=== PATIENT | female | born 1985 | race Caucasian/White ===

== ENCOUNTER 2022-04-20 17:20 | Inpatient (IN) | payer OTHER, SELFPAY ==
[2022-04-20 17:36] LABS: Urine Blood Negative (Negative); Urine Glucose Negative (Negative); Urine Protein Trace (Negative); Urine Specific Gravity >=1.030 (1.005-1.030); Urine pH 5.5 (5.0-7.0)
[2022-04-20 17:43] LABS: Arterial Blood Carboxyhemoglob 4.8 % (0-1.5); Blood Gas Oxyhemoglobin 92.7 % (94-97); Blood O2 Saturation 98.8 % (92-98.5)
[2022-04-20] MEDS ORDERED: MULTIVITAMINS 10 ML VIAL (INJ) IV ONE (17:45)
[2022-04-20] MEDS ORDERED: NA CHLORIDE 0.9% 2,000 ML ONE (17:45)
[2022-04-20 17:47] LABS: Absolute Lymphocytes (CBC) 1.1 K/uL (0.7-4.9); Hematocrit 42.2 % (36.0-45.0); Lymphocytes % 9.3 % (15.3-44.8); MCV 88.4 fL (80-100); MPV 8.3 fL (7.6-11.3); RBC Red Blood Cell Count 4.77 M/uL (3.86-4.86)
[2022-04-20 17:56] LABS: Barbiturates NEGATIVE (NEGATIVE); Benzodiazepines POSITIVE (NEGATIVE); Cocaine NEGATIVE (NEGATIVE); METHAMPHETAM POSITIVE (NEGATIVE); Methadone NEGATIVE (NEGATIVE); Opiates NEGATIVE (NEGATIVE); Phencyclidine NEGATIVE (NEGATIVE); THC Cannibis POSITIVE (NEGATIVE)
--- NOTE | 2022-04-20 18:05 | RAD REPORT ---
EXAM DESCRIPTION: Christie Single View04/20/2022 5:52 pm CLINICAL HISTORY: ams COMPARISON: No comparisons TECHNIQUE: Portable AP view of the chest. FINDINGS: The lungs are clear. No pneumothorax or effusion. The cardiomediastinal contours are unrem arkable. IMPRESSION: No acute cardiopulmonary process.
[2022-04-20 18:13] LABS: ALT/SGPT 36 U/L (13-56); AST/SGOT 21 U/L (15-37); Alkaline Phosphatase 64 U/L (45-117); BUN Blood Urea Nitrogen 9 mg/dL (7-18); Bicarbonate 23 mmol/L (21-32); Bilirubin Total 0.5 mg/dL (0.2-1.0); Glomerular Filtration Rate 82 ml/min (=/>90); Glucose Level 148 mg/dL (74-106); Protein, Total 7.4 g/dL (6.4-8.2); Sodium Level 138 mmol/L (136-145)
[2022-04-20 18:31] LABS: Urine Specific Gravity/Preg >1.030 (1.005-1.030)
--- NOTE | 2022-04-20 18:49 | RAD REPORT ---
EXAM DESCRIPTION: CT - Head Brain Wo Cont - 04/20/2022 6:30 pm CLINICAL HISTORY: ams COMPARISON: No comparisons TECHNIQUE: Noncontrast head CT images ad were obtained without IV contrast. Multiplanar reformats we re generated and reviewed. All CT scans are performed using dose optimization technique as appropriate and may include automated exposure control or mA/KV adjustment according to patient size. FINDINGS: No intracranial hemorrhage, mass, or edema. No abnormal extra-axial fluid collections. Mid line structures are unremarkable. Normal ventricular caliber for age. Priest-white matter differentiation is preserved, without evidence of acute infarct. No abnormal extra- axial fluid collections. Mastoid air cells and visualized portions of the paranasal sinuses are clear. No acute bony findings. IMPRESSION: No evidence of an acute intracranial process.
[2022-04-20 19:19] LABS: Creatine Phosphokinase 138 U/L (26-192)
[2022-04-21] MEDS ORDERED: LORazepam 2 MG/ML VIAL ONE ×3 (02:59→17:26)
[2022-04-21] MEDS ORDERED: MIDAZOLAM HCL 2 MG/2 ML INJ ONE (03:38)
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
--- NOTE | 2022-04-21 04:02 | EDPHYS ---
Physician Documentation [facility] Name: Fidelia Rios Age: 36 yrs Sex: Female : 1985 Arrival Date: 04/20/2022 Time: 17:25 Bed 6 Private MD: ED Physician Sumit Perdue HPI: 04/20 18:36 This 36 yrs old Female presents to ER via EMS with complaints of Altered Mental Status. rt 18:36 Unable to obtain HPI due to altered mental status. Patient presents to the ED with rt altered mental status. Patient was found by law enforcement to be combative on a jetty. The patient was given Versed, became oversedated, Narcan was given to no improvement. The police did find a suicide note as well as divorce papers with a bottle of 10 mg of buspirone with about 20 pills missing. No further history could be obtained. Symptoms are severe in severity, no other aggravating or alleviating factors.. Historical: - Allergies: 17:31 Unable to obtain; hb 04/21 07:26 Latex, Natural Rubber; bb 07:26 adhesive tape-silicones; bb 07:26 Adderall; bb 07:26 surgical suture; bb - Home Meds: 04/20 17:31 Unable to obtain [Active]; hb - PMHx: 17:31 Unable to Obtain; hb - PSHx: 17:31 Unable to Obtain; hb - Immunization history:: Adult Immunizations up to date. - Social history:: Smoking status: Patient denies any tobacco usage or history of. - Unable to obtain history due to: altered mental status. ROS: 18:36 Unable to obtain ROS due to altered mental status. rt 04/22 08:39 Constitutional: Unable to obtain secondary to altered mental status on initial kdr presentation Exam: 04/20 18:36 Constitutional: The patient appears Somnolent, uncooperative rt Head/face: No external evidence of trauma. Eyes: Pupils dilated, nonreactive, midline. ECG was reviewed by the Attending Physician. Neuro: Somnolent, not following commands, arouses to minimal physical stimuli, not to verbal stimuli. Appears to move all 4 extremities equally. No obvious cranial nerve deficits.. Psych: Not assessable at this time. 18:41 ENT: Nares patent. No nasal discharge, no septal abnormalities noted. Tympanic rt membranes are normal and external auditory canals are clear. Oropharynx with no redness, swelling, or masses, exudates, or evidence of obstruction, uvula midline. Mucous membranes moist. Chest/axilla: Normal chest wall appearance and motion. Nontender with no deformity. No lesions are appreciated. Cardiovascular: Regular rate and rhythm with a normal S1 and S2. No gallops, murmurs, or rubs. Normal PMI, no JVD. No pulse deficits. Respiratory: Lungs have equal breath sounds bilaterally, clear to auscultation and percussion. No rales, rhonchi or wheezes noted. No increased work of breathing, no retractions or nasal flaring. Abdomen/GI: Soft, non-tender, with normal bowel sounds. No distension or tympany. No guarding or rebound. No evidence of tenderness throughout. Skin: Warm, dry with normal turgor. Normal color with no rashes, no lesions, and no evidence of cellulitis. MS/ Extremity: Pulses equal, no cyanosis. Neurovascular intact. Full, normal range of motion. 04/21 04:20 ECG was reviewed by the Attending Physician. Sinus tachycardia, rate 109, no STEMI sd2 criteria, TWIs in lead II and III 09:33 ECG was reviewed by the Attending Physician. rt Vital Signs: 04/20 17:29 BP 120 / 67; Pulse 119; Resp 18; Temp 97.8(A); Pulse Ox 99% 2 lpm ; Pain 0/10; hb 17:30 BP 122 / 81; Pulse 108; Resp 16; Pulse Ox 99% ; ko1 17:45 BP 118 / 74; Pulse 104; Resp 16; Pulse Ox 99% ; ko1 18:00 BP 118 / 72; Pulse 101; Resp 16; Pulse Ox 99% ; ko1 18:15 BP 116 / 65; Pulse 97; Pulse Ox 98% ; ko1 18:39 BP 111 / 71; Pulse 95; Resp 19; Pulse Ox 100% on 2 lpm NC; hb 19:32 BP 106 / 68; Pulse 91; Resp 18; Pulse Ox 100% ; tw5 20:28 BP 115 / 73; Pulse 96; Resp 25 S; Pulse Ox 99% on 2 lpm NC; as6 21:28 BP 113 / 77; Pulse 95; Resp 18; Pulse Ox 99% on 2 lpm NC; tw5 23:00 BP 121 / 79; Pulse 106; Resp 24 S; Pulse Ox 99% on R/A; as6 0218 00:00 BP 122 / 79; Pulse 101; Resp 21 S; Pulse Ox 99% on R/A; as6 01:00 BP 126 / 85; Pulse 109; Resp 20 S; Pulse Ox 98% on R/A; as6 02:00 BP 137 / 92; Pulse 119; Resp 18 S; Pulse Ox 99% on R/A; as6 03:00 BP 119 / 82; Pulse 130; Resp 21 S; Pulse Ox 97% on R/A; as6 07:16 BP 133 / 89; Pulse 118; Resp 18; Temp 98.2(TE); Pulse Ox 97% on R/A; Pain 0/10; ll1 08:09 BP 143 / 65; Pulse 122; Resp 20 S; Pulse Ox 99% on R/A; kc6 09:03 BP 120 / 74; Pulse 117; Resp 21; Temp 97.7(O); Pulse Ox 99% ; ll1 10:08 BP 135 / 70; Pulse 116; Resp 22; Pulse Ox 100% on R/A; ll1 11:36 BP 123 / 77; Pulse 128; Resp 21; Pulse Ox 98% on R/A; ll1 14:22 BP 117 / 73; Pulse 111; Resp 20; Temp 98.7(O); Pulse Ox 96% on R/A; ll1 17:01 Pulse 117; Resp 20; Pulse Ox 99% on R/A; ll1 18:18 Pulse 107; Resp 20; Pulse Ox 96% on R/A; ll1 18:37 BP 107 / 66; Pulse 103; Resp 20; Temp 99.1(TE); Pulse Ox 97% ; ll1 19:10 BP 114 / 74; Pulse 64; Resp 16; Pulse Ox 100% ; mb9 20:10 BP 128 / 73; Pulse 102; Resp 16; Pulse Ox 100% ; mb9 21:10 BP 110 / 82; Pulse 100; Resp 15; Pulse Ox 100% on R/A; mb9 04/22 00:00 BP 116 / 75; Pulse 103; Resp 18 S; Pulse Ox 99% on R/A; as6 02:00 BP 114 / 72; Pulse 105; Resp 16 S; Pulse Ox 97% on R/A; as6 04:00 BP 108 / 57; Pulse 107; Resp 16 S; Temp 97.8(O); Pulse Ox 96% on R/A; as6 06:00 BP 117 / 71; Pulse 113; Pulse Ox 96% on R/A; as6 07:15 BP 126 / 77; Pulse 105; Resp 18; Temp 99.3; Pulse Ox 97% ; as6 22:17 BP 129 / 83; Pulse 94; Resp 26; Temp 98.4; Pulse Ox 99% on R/A; rv1 04/23 00:28 BP 116 / 77; Pulse 92; Resp 19; Temp 98.4; Pulse Ox 96% on R/A; rv1 04/20 17:29 Kobi (FACES) hb MDM: 04/20 17:30 Patient medically screened. rt 18:58 Management of patient was discussed with the following: Poison control contacted, rt recommends 6-hour observation.. I considered the following discharge prescriptions or medication management in the emergency department Medications were administered in the Emergency Department. See MAR. Historians other than the Patient: Law enforcement: Discussed with law enforcement, they found the patient suicide note and noted that she had a bottle of buspirone that was missing about 20 pills.. Care significantly affected by the following Social Determinants of Health: Misuse of alcohol and/or drugs. 04/21 10:18 Differential Diagnosis: Intentional overdose, polysubstance abuse, rhabdomyolysis, rt dysrhythmia. Data reviewed: vital signs, nurses notes, lab test result(s), EKG, radiologic studies. Consideration of Admission/Observation Patient was admitted/placed on observation. Response to treatment: There is no appreciated change of the patient's symptoms at this time. 04/20 17:30 Order name: CBC with Diff; Complete Time: 18:35 rt 04/20 17:30 Order name: CMP; Complete Time: 19:24 rt 04/20 17:30 Order name: UDS; Complete Time: 18:35 rt 04/20 17:30 Order name: ETOH Level; Complete Time: 18:35 rt 04/20 17:30 Order name: Acetaminophen; Complete Time: 19:24 rt 04/20 17:30 Order name: Salicylate; Complete Time: 18:35 rt 04/20 17:30 Order name: Magnesium; Complete Time: 19:24 rt 04/20 17:30 Order name: AMMONIA; Complete Time: 18:35 rt 04/20 17:30 Order name: ABG: VBG ok; Complete Time: 18:35 rt 04/20 17:36 Order name: Urine Dipstick-Ancillary; Complete Time: 18:35 EDMS 04/20 18:01 Order name: Glucose, Ancillary Testing; Complete Time: 18:35 EDMS 04/20 18:04 Order name: Urine --Ancillary (enter results); Complete Time: 18:35 zm 04/20 18:42 Order name: Creatine Phosphokinase; Complete Time: 19:24 EDMS 04/21 08:44 Order name: CBC with Diff; Complete Time: 09:35 rt 04/21 08:44 Order name: CMP; Complete Time: 09:35 rt 04/21 08:44 Order name: CPK; Complete Time: 09:35 rt 04/21 08:46 Order name: Magnesium; Complete Time: 09:35 rt 04/21 08:53 Order name: Troponin High Sensitivity; Complete Time: 09:35 rt 04/21 11:22 Order name: SARS RAPID; Complete Time: 12:14 iw 04/21 12:18 Order name: CPK; Complete Time: 13:37 rt 04/21 13:51 Order name: BMP; Complete Time: 15:38 rt 04/22 06:22 Order name: CBC with Diff sd2 04/22 06:22 Order name: BMP sd2 04/22 06:22 Order name: Magnesium sd2 04/22 06:22 Order name: CK sd2 04/22 07:23 Order name: CBC with Automated Diff; Complete Time: 08:17 EDMS 04/22 08:18 Order name: Basic Metabolic Panel; Complete Time: 08:20 EDMS 04/22 08:18 Order name: Creatine Phosphokinase; Complete Time: 08:20 EDMS 04/22 08:18 Order name: Magnesium; Complete Time: 08:20 EDMS 04/20 17:30 Order name: Chest Single View XRAY; Complete Time: 18:35 rt 04/20 17:30 Order name: Head Brain Wo Cont CT; Complete Time: 18:51 rt 04/22 22:16 Order name: Basic Metabolic Panel EDMS 04/22 22:16 Order name: Magnesium EDMS 04/23 02:42 Order name: CBC with Automated Diff EDMS 04/23 02:59 Order name: Comprehensive Metabolic Panel EDMS 04/23 02:59 Order name: Phosphorus EDMS 04/23 02:59 Order name: Magnesium EDMS 04/23 04:58 Order name: Creatine Phosphokinase EDMS 04/23 13:19 Order name: Basic Metabolic Panel EDMS 04/23 13:19 Order name: Creatine Phosphokinase EDMS 04/23 13:26 Order name: CBC with Automated Diff EDMS 04/20 17:30 Order name: Urine Dipstick-Ancillary (obtain specimen); Complete Time: 17:32 rt 04/20 17:30 Order name: Urine Test (obtain specimen); Complete Time: 17:32 rt 04/20 17:30 Order name: EKG; Complete Time: 17:31 rt 04/20 17:30 Order name: EKG - Nurse/Tech; Complete Time: 17:46 rt 04/20 17:30 Order name: Accucheck Blood Glucose; Complete Time: 17:49 rt 04/21 00:23 Order name: EKG - Nurse/Tech; Complete Time: 01:48 sd2 04/21 07:34 Order name: Diet Regular: Finger foods please; Complete Time: 07:35 ll1 04/21 08:46 Order name: EKG; Complete Time: 08:47 rt 04/21 08:46 Order name: EKG - Nurse/Tech; Complete Time: 08:55 rt 04/21 09:21 Order name: Diet Finger Food; Complete Time: 09:22 ll1 04/21 12:19 Order name: Diet Finger Food; Complete Time: 12:19 mm9 04/21 13:27 Order name: Diet Finger Food; Complete Time: 13:27 ll1 04/22 07:13 Order name: Diet Finger Food; Complete Time: 07:14 eb 04/22 10:49 Order name: Diet Finger Food; Complete Time: 10:49 mm9 04/22 15:54 Order name: Diet Finger Food; Complete Time: 15:55 ll1 04/23 13:57 Order name: Diet Regular; Complete Time: 13:58 rn EC/17 18:36 Rate is 107 beats/min. Rhythm is regular, Sinus tachycardia with No ectopy. Right axis rt deviation noted. VA interval is normal at 158 msec. QRS interval is normal at 76 msec. QT interval is prolonged at 504 msec. 04/21 09:33 Rate is 120 beats/min. Rhythm is regular, Sinus tachycardia with No ectopy. QRS [place] is rt Normal. VA interval is normal. QRS interval is normal. QT interval is normal. No Q waves. Clinical impression: NSR w/ Non-specific ST/T Changes. Administered Medications: 04/20 17:46 Drug: NS 0.9% 1000 ml Route: IV; Rate: bolus; Site: right forearm; hb 04/21 06:25 Follow up: Response: No adverse reaction; IV Status: Completed infusion; IV Intake: as6 1000ml 04/20 17:46 Drug: Banana Bag - (NS 0.9% 1000 ml, foLIC Acid 1 mg, Thiamine 100 mg, Multivitamin 1 hb amp) Route: IV; Rate: calculated rate; Site: right forearm; 04/21 06:25 Follow up: Response: No adverse reaction; IV Status: Completed infusion; IV Intake: as6 1000ml 02:55 Drug: Ativan (LORazepam) 1 mg Route: IVP; Site: right forearm; as6 06:25 Follow up: Response: No adverse reaction as6 03:31 CANCELLED (Physician Discretion): Geodon (ziprasidone) 20 mg IM once sd2 03:38 Drug: Midazolam 5 mg Route: IVP; Site: right forearm; as6 06:26 Follow up: Response: No adverse reaction as6 04:59 Drug: Geodon (ziprasidone) 10 mg Route: IM; Site: right deltoid; as6 06:26 Follow up: Response: No adverse reaction as6 08:27 Drug: Geodon (ziprasidone) 10 mg Route: IM; Site: left vastus lateralis; ll1 09:07 Follow up: Response: No adverse reaction; RASS: Agitated (+2) ll1 08:57 Drug: NS 0.9% 1000 ml Route: IV; Rate: 1 bolus; Site: left forearm; ll1 10:09 Follow up: Response: No adverse reaction; IV Status: Completed infusion; IV Intake: ll1 1000ml 08:58 Drug: Ativan (LORazepam) 1 mg {Note: RASS +3.} Route: IVP; Site: left forearm; ll1 10:09 Follow up: Response: No adverse reaction; RASS: Agitated (+2) ll1 12:06 Drug: NS 0.9% 1000 ml Route: IV; Rate: 1 bolus; Site: left forearm; ll1 18:12 Follow up: Response: No adverse reaction; IV Status: Completed infusion; IV Intake: ll1 1000ml 15:30 Drug: Valium (diazepam) 10 mg Route: PO; ll1 18:17 Follow up: Response: No adverse reaction; RASS: Drowsy (-1) ll1 17:23 Drug: Ativan (LORazepam) 2 mg {Note: RASS + 4.} Route: IVP; Site: left forearm; ll1 18:18 Follow up: Response: No adverse reaction; RASS: Light sedation (-2) ll1 17:25 Drug: HALdol (haloperidol) 5 mg {Note: RASS +4.} Route: IVP; Site: left forearm; ll1 18:18 Follow up: Response: No adverse reaction; RASS: Light sedation (-2) [facility] 04/22 06:36 Drug: NS 0.9% 1000 ml Route: IV; Rate: 1 bolus; Site: left antecubital; vc1 10:25 Follow up: Response: No adverse reaction; IV Status: Completed infusion; IV Intake: ll1 1000ml 06:36 Drug: Potassium Chloride 40 mEq Route: PO; vc1 08:18 Follow up: Response: No adverse reaction ll1 08:36 Drug: NS 0.9% 1000 ml Route: IV; Rate: 1 bolus; Site: right antecubital; ll1 11:49 Follow up: Response: No adverse reaction; IV Status: Completed infusion; IV Intake: ll1 1000ml 08:36 Drug: Potassium Chloride 40 mEq Route: PO; ll1 10:25 Follow up: Response: No adverse reaction 1 10:20 Drug: Nicoderm CQ Patch 21 mg/24 hr 21 mg {Note: R upper back.} Route: Transdermal; ll1 Site: affected area; 11:49 Follow up: Response: No adverse reaction ll1 11:48 Drug: NS 0.9% 1000 ml Route: IV; Rate: 1000 ml/hr; Site: right antecubital; ll1 15:54 Follow up: Response: No adverse reaction; IV Status: Completed infusion; IV Intake: ll1 1000ml 15:40 Drug: NS 0.9% 1000 ml Route: IV; Rate: 200 ml/hr; Site: right antecubital; ll1 Point of Care Testing: Blood Glucose: 04/20 17:49 Blood Glucose: 136 mg/dL; hb Ranges: Critical Glucose Levels:Adult <50 mg/dl or >400 mg/dl <40 mg/dl or >180 mg/dl Disposition: 04/21 10:18 Critical Care:. rt Disposition Summary: 04/22/22 08:39 Hospitalization Ordered Hospitalization Status: Inpatient Admission(04/22/22 08:39) kdr Provider: Leobardo Melo(04/22/22 08:39) kdr Condition: Serious(04/22/22 08:39) kdr Problem: new(04/22/22 08:39) kdr Symptoms: have improved(04/22/22 08:39) kdr Bed/Room Type: Standard(04/22/22 08:39) kdr Location: Telemetry/MedSurg (Inpatient)(04/23/22 12:16) eb Room Assignment: 219(04/23/22 14:29) eb Diagnosis - Altered mental status, unspecified(04/22/22 08:39) kdr - Hypokalemia kdr - Rhabdomyolysis kdr - Suicidal ideations(04/22/22 08:39) kdr - Other psychoactive substance abuse kdr Forms: - Medication Reconciliation Form kdr - SBAR form kdr Critical care time excluding procedures: 10:18 Critical care time: Bedside Care: 30 minutes, Consultation: 5 minutes. Total time: 35 rt minutes Signatures: Dispatcher [employer] EDMS Sumit Perdue MD MD kdr Valeri Martinez RN RN bb Baxter, Heather, RN RN Quintin Ramos RN RN Yuko De Leon Nadia Garcia RN RN ll1 Basilio Hamm RN RN as6 Kalpana Caro RN RN vc1 Megha Reid MD MD sd2 Ace Burgess MD MD rt Corrections: (The following items were deleted from the chart) 04/20 18:42 18:36 CREATINE PHOSPHOKINASE+C.LAB.BRZ ordered. EDOK EDMS 04/21 03:31 03:31 Geodon (ziprasidone) 20 mg IM once ordered. sd2 sd2 09:49 04:02 Inpatient Psych Facility sd2 rt 09:49 04:02 Psych Facility sd2 rt 09:49 04:02 Higher level of care sd2 rt 09:49 04:02 Stable sd2 rt 09:49 04:02 new sd2 rt 09:49 04:02 have improved sd2 rt 09:49 04:02 Altered mental status, unspecified sd2 rt 09:49 04:02 Suicidal ideations sd2 rt 09:49 04:02 Suicide attempt sd2 rt 09:49 04:02 Medication overdose, intentional sd2 rt 12:39 09:51 Observation rt rt 12:39 09:51 Sylvain Paz rt rt 12:39 09:51 Telemetry/MedSurg (observation) rt rt 12:39 09:51 Fair rt rt 12:39 09:51 new rt rt 12:39 09:51 are unchanged rt rt 12:39 09:51 Standard rt rt 12:39 09:51 rt rt 12:39 09:51 Suicide attempt by overdose rt rt 12:39 09:51 Methamphetamine abuse rt rt 12:39 09:51 Elevated CPK rt rt 12:39 09:51 Altered mental status rt rt 04/22 08:38 02/18 18:41 . rt kdr 04/22 08:38 0218 18:41 Psych Facility rt kdr 04/22 08:38 0218 18:41 Higher level of care rt kdr 04/22 08:38 02/18 18:41 Fair rt kdr 04/22 08:38 02/18 18:41 new rt kdr 04/22 08:38 18 18:41 are unchanged rt kdr 04/22 08:38 0218 18:41 Suicide attempts rt kdr 04/22 08:38 0218 18:41 Acute agitation rt kdr 04/22 08:38 0218 18:41 Hypokalemia rt kdr 04/22 08:38 0218 18:41 Dehydration rt kdr 04/22 18:47 08:39 Intensive Care Unit kdr ja1 18:47 08:39 kdr ja1 18:48 18:47 ja1 ja1 04/23 12:16 0219 18:47 [facility] ER HOLD ja1 eb 04/23 12:16 04/22 18:48 ERHOLD- ja1 eb 04/23 13:13 12:16 219 eb ja1 14:29 13:13 ja1 eb
[2022-04-21] MEDS ORDERED: ZIPRASIDONE MESYLA 20 MG/VIAL IM ONE ×2 (04:55→08:24)
[2022-04-21] MEDS ORDERED: WATER FOR INJ,STERILE 10 ML ONE ×2 (04:55→08:25)
[2022-04-21] MEDS ORDERED: NA CHLORIDE 0.9% 1,000 ML ONE ×2 (09:00→12:06)
[2022-04-21 09:01] LABS: Absolute Lymphocytes (CBC) 0.9 K/uL (0.7-4.9); Lymphocytes % 6.1 % (15.3-44.8); MCV 87.9 fL (80-100); MPV 8.3 fL (7.6-11.3); RBC Red Blood Cell Count 4.33 M/uL (3.86-4.86)
[2022-04-21 09:23] LABS: Albumin 3.7 g/dL (3.4-5.0); Bilirubin Total 0.6 mg/dL (0.2-1.0); Protein, Total 6.9 g/dL (6.4-8.2)
[2022-04-21 11:55] LABS: SARS-CoV-2 Antigen Rapid Res Negative (Negative)
[2022-04-21] MEDS ORDERED: DIAZEPAM 5 MG TABLET ONE (15:28)
[2022-04-21 15:37] LABS: Potassium 2.9 mmol/L (3.5-5.1)
[2022-04-21] MEDS ORDERED: POTASSIUM CL SA 10 MEQ TAB PO ONE (15:44)
--- NOTE | 2022-04-21 17:09 | P.CNS ---
Date of Consult: 04/21/22 Reason for Consult: elevated CPK Requesting Physician: Ace Burgess Chief Complaint: suicide attempt, buspar overdose History of Present Illness: 36yo F, PMH: unknown. Brought to ED yesterday by Police - found to be combative [place] a [place]. Patient was given Versed, became oversedated, Narcan was given with no improvement. Police found a suicide note, divorce papers, and a bottle of 10 mg buspirone with about 20 pills missing. Patient remained sedated, and intermittently agitated. Initial labs notable for mild leukocytosis, mild hypokalemia, urine tox positive for amphetamines, benzodiazepines, THC. Initial EKG with mild QT prolongation, Poison control was called, and repeat EKGs had improvement of her QTc. Patient has now received 1 L banana bag, 2 L normal saline, multiple doses of benzodiazepines and Geodon. Repeat bloodwork noted increased CPK to ~1100, normal renal function (improvement of GFR). I am consulted for evaluation of rhabdomyolysis and possible admission to the hospital prior to transfer to psych facility for her suicide attempt. At the time of my examination, patient is awake, oriented to self and year. She is unsure of how she got here. She states she has been having a rough time lately with family and other personal issues she did not want to get into with me. She recently received Ativan. She denies any nausea/vomiting, no vision changes, no pain, no recent infection. I explained what occurred and that police have brought the patient to the ER, and concern for her suicide attempt with the suicide note and missing BuSpar. Patient states "oh yeah", but states she wants to go home and she does not have any plans to hurt herself. She is not on the most clearest sling when at this time, likely from the Geodon and benzodiazepine she has received. When asked if she has any bruising, she points to both of her thighs, states this was "self-inflicted yesterday". When explained the urine tox results, she acted surprised. She states she has taken ecstasy in the past, and smokes marijuana. She denies any amphetamine use, but states she is "around people who do drugs". Denies any prior history of withdrawals. Denies any consistent use of recreational drugs in the last month. [facility] States she did not agree to being restrained and wants to go home. - Past Medical/Surgical History Past Medical History: Unable to obtain Past Surgical History: Unable to obtain - Social History Smoking Status: Unknown if ever smoked Alcohol use: Yes Place of Residence: Home Review of Systems 10-point ROS is otherwise unremarkable Physical Examination General: Alert, In no apparent distress, Oriented x2, Confused (/?delirious, s/p geodon/multiple benzos), Other (in 4 point restraints) HEENT: Other (dry mucous membranes), EOMI, Sclerae nonicteric Neck: Supple, No LAD Respiratory: Clear to auscultation bilaterally, Normal air movement Cardiovascular: No edema, No murmurs, Other (sinus tachycardia 100-110) Gastrointestinal: Soft and benign, Non-distended, No tenderness Musculoskeletal: No contractures, No tenderness Integumentary: Other (b/l ecchymosis in anterior thighs) Neurological: Normal strength at 5/5 x4 extr, Sensation intact, Cranial nerves 3-12 intact, Other (slight slurred speech, moves all extremities(in 4pt restraints), slight agitation intermittently) Laboratory Data (last 24 hrs) 04/21/22 14:10: Sodium 144, Potassium 2.9 L*, BUN 4 L, Creatinine 0.65, Glucose 91 04/21/22 08:50: Magnesium 1.9 04/21/22 08:50: Sodium 141, Potassium 3.0 L, BUN 5 L, Creatinine 0.76, Glucose 93, Total Bilirubin 0.6, AST 37, ALT 34, Alkaline Phosphatase 56 04/21/22 08:50: WBC 14.10 H, Hgb 12.7 D, Hct 38.0, Plt Count 170 04/20/22 17:33: Sodium 138, Potassium 3.0 L, BUN 9, Creatinine 0.92, Glucose 148 H, Magnesium 2.0, Total Bilirubin 0.5, AST 21, ALT 36, Alkaline Phosphatase 64 04/20/22 17:33: WBC 12.30 H, Hgb 14.0, Hct 42.2, Plt Count 173 Physician Review Additional Text: Problem List Suicide attempt QTc prolongation secondary to buspirone overdose, resolved elevated CPK leukocytosis hypokalemia Brought in by police, 302 on chart QTc prolongation from buspar resolved, no longer requiring monitoring patient with some confusion /delirium, unclear if from recent drug use or medications given here nursing staff report patient is improved, previously not able to have a conversation denies current SI, however not fully aware / at capacity secondary to drug/medication elevated CPK mild increase ~12 hrs later, renal function improved result of being combative, and has b/l anterior thigh ecchymosis hypokalemia, received IVF without added supplementation, Mg ok, recommend repletion recommended repeat CPK and BMP after further fluid patient appeared dry on exam; reported at [facility], and has not eaten anything in > 12 hrs she has been here, unknown prior repeat CPK done immediately after liter of IVF given; only increased to 1600; renal function improved; has not received KCL replacement yet, so K+ remains low/stable staff report patient has not voided since initial straight cath for sample secondary to dehydration and in 4 pt restraints on stretcher ~600cc noted on bedside bladder scan; if not combative, can try partial restraints / sit up / bed courtney Patient nearing expected time for CPK to peak, and not a significant increase; normal renal function Ensure patient can void and recommend K replacement and another liter of IVF Awake and alert, bedside swallow eval, and if sitting up / awake, consider feeding. Patient medically cleared for transfer to psych facility. Time Spent Managing Pts care (In Minutes): 60
[2022-04-21] MEDS ORDERED: HALOPERIDOL LACT 5 MG/ML INJ ONE (17:30)
[2022-04-22] MEDS ORDERED: NA CHLORIDE 0.9% 1,000 ML ONE ×3 (06:30→21:12)
[2022-04-22 07:10] LABS: Absolute Lymphocytes (CBC) 1.1 K/uL (0.7-4.9); Hematocrit 38.2 % (36.0-45.0); Lymphocytes % 10.9 % (15.3-44.8); MCV 87.9 fL (80-100); MPV 7.8 fL (7.6-11.3); RBC Red Blood Cell Count 4.35 M/uL (3.86-4.86)
[2022-04-22 08:14] LABS: Magnesium 2.2 mg/dL (1.6-2.4)
[2022-04-22] MEDS ORDERED: NA CHLORIDE 0.9% 2,000 ML ONE (08:32)
[2022-04-22] MEDS ORDERED: POTASSIUM CL SA 10 MEQ TAB PO ONE (08:32)
[2022-04-22] MEDS ORDERED: NICOTINE 21 MG/PAT TD ONE (10:21)
[2022-04-22] MEDS ORDERED: ACETAMINOPHEN 500 MG TAB PO PRN (10:43)
--- NOTE | 2022-04-22 11:36 | P.HP ---
Certification for Inpatient Patient admitted to: Inpatient With expected LOS: >2 Midnights Practitioner: I am a practitioner with admitting privileges, knowledge of patient current condition, hospital course, and medical plan of care. Services: Services provided to patient in accordance with Admission requirements found in Title 42 Section 412.3 of the Code of Federal Regulations Patient History Date of Service: 04/22/22 Reason for admission: elevated CPK, rhabdomyolysis History of Present Illness: Please see HPI from consult noted on 04/21 for further detail. 36yo F, PMH: depression/anxiety. Brought to ED after found with altered mental status, confused, and repro[place]ly [place]. She was found with a suicide note, divorce papers, and bottle of 10mg buspirone with ~20 pills misisng. She was given Versed and became oversedated, narcan was administered without much improvement. Initial labs notable for mild leukocytosis, mild hypokalemia, urine tox positive for amphetamines, benzodiazepines, THC. Initial EKG with mild QT prolongation, Poison control was called, and repeat EKGs had improvement of her QTc. She received IV fluids, continued with agitation, and remained in 4 point restraints. The following day, her CPK was noted to increase to ~1100, with improved renal function. Initially consulted for possible admission. She was given further IV fluids with minimal CPK increase. Her mentation improved but still had some confusion. Advised further fluid, potassium replacement, and if voiding and recheck reasonable, she would be cleared for transfer to inpatient psych facility. She received some further IV fluid, reportedly had some urinary retention and straight cath'd for >1L. She was monitored and clinically improving, awaiting transfer to psych facility / eval. Labs were rechecked on 04/22, and notable for significant increase in CPK to ~89733. Renal function stable, Potassium with no significant change, but did not receive much supplementation. Currently awake/alert/oriented x3. Somewhat anxious appearing, states because she doesn't remember what happened. Currently denies suicidal ideation. As we talked further, she was able to recall feeling upset and overwhelmed. She drove to the beach, wrote her letter, and took unknown amount of wellbutrin. States she thinks it was a 90 day supply and took "several" but unable to quantify. She states she had the buspirone bottle but did not take any. Denies any history of methamphetamine use. Remote history of marijuana use - >several months ago. Denies any recent drug use in the last several weeks, but is "around people who smoke weed". - Past Medical/Surgical History -: depression/anxiety -: appendectomy -: adenoidectomy - Family History Family History: Reviewed- Non-Contributory - Social History Smoking Status: Current some day smoker Alcohol use: Yes Place of Residence: Home Review of Systems 10-point ROS is otherwise unremarkable Physical Examination - Physical Exam General: Alert, In no apparent distress, Oriented x3 HEENT: EOMI, Sclerae nonicteric Neck: Supple, No LAD Respiratory: Clear to auscultation bilaterally, Normal air movement Cardiovascular: No edema, Regular rate/rhythm Gastrointestinal: Soft and benign, Non-distended, No tenderness Musculoskeletal: No contractures, Other (soreness in neck/upper back / b/l upper and lower extremities) Integumentary: Other (scattered ecchymosis throughout all extremities ) Neurological: Normal speech, Normal strength at 5/5 x4 extr, Sensation intact, Cranial nerves 3-12 intact, Abnormal affect (mildly anxious affect) - Studies Laboratory Data (last 24 hrs) 04/22/22 07:00: Sodium 140, Potassium 3.0 L, BUN 4 L, Creatinine 0.66, Glucose 105, Magnesium 2.2 04/22/22 07:00: WBC 10.30, Hgb 13.0, Hct 38.2, Plt Count 159 04/21/22 14:10: Sodium 144, Potassium 2.9 L*, BUN 4 L, Creatinine 0.65, Glucose 91 Assessment and Plan - Advance Directives Does patient have a Living Will: No Does patient have a Durable POA for Healthcare: No Physician Review Additional Text: Problem List Acute toxic encephalopathy secondary to medication overdose for presumed Suicide attempt, resolved QTc prolongation secondary to medication toxicity (Wellbutrin), resolved rhabdomyolysis leukocytosis hypokalemia Brought in by police, 302 on chart initially assumed patient took buspar - bottle found by her. But patient denies this, and reported taking unknown amount of wellbutrin - saying may not have found bottle if in her car or purse. Patient's presentation makes more sense / would be explained if truly was wellbutrin as she had tachycardia and agitation, then oversedated. Her course in the ED seemed to swing back and forth and agitation managed with lower dose benzos / antipsychotics. Mentation is much better, seems to be at baseline. understands what is going on. oriented x3 patient to be evauluated for inpatient psych today denies current SI rhabdo, elevated CPK from self-inflicted bruing and from being combative with police and requiring restraints had not eaten, and [place] sun [place] patient dehydrated, received some IV fluids, and had some urinary retention further bruising much more evident today throughout body no witnessed seizure / do not suspect seizure; but risk with wellbutrin overdose start NS @200ml/hr strict I/Os patient counselled on strict I/Os, nurse updated to measure urine output replete phos nephro consulted titrate fluids to goal UOP of ~200ml/hr urinary retention resolved, has been up to bathroom voiding without issue pt does not want humphries, and denies any current issues. Discussed can try without it, if unable to get accurate UOP or patient having difficulty, will place humphries fall risk; suicide precautions Code: full Dispo: involuntary care home expires 04/24 per ED staff, [facility] to come by and eval inpatient psych transfer initiated in ED monitor for 1-2 days, ensure cpk improves. Time Spent Managing Pts Care (In Minutes): 70
--- NOTE | 2022-04-22 15:31 | P.CNS ---
Date of Consult: 04/22/22 Reason for Consult: Rhabdomyolysis, hypokalemia Requesting Physician: Sylvain Paz Chief Complaint: elevated CPK, rhabdomyolysis History of Present Illness: 36F w/ PMHx of depression/anxiety who p/w AMS after a suicide attempt via drug overdose, found to have mild leukocytosis, mild hypokalemia, mild QT prolongation, and rhabdomyolysis. Utox positive for amphetamines, benzodiazepines, & THC. She is receiving IV fluids. She is now more awake & responds appropriately. She denies having any dysuria or flank pain. Allergies No Known Allergies Allergy (Unverified 04/22/22 19:17) - Past Medical/Surgical History -: depression/anxiety -: appendectomy -: adenoidectomy - Social History Smoking Status: Unknown if ever smoked Alcohol use: Yes Place of Residence: Home Review of Systems General: Unremarkable Eyes: Unremarkable Respiratory: Unremarkable Cardiovascular: Unremarkable Gastrointestinal: Unremarkable Genitourinary: Unremarkable Integumentary: Unremarkable Neurological: Unremarkable Lymphatics: Unremarkable Other: Psyche: depression/anxiety Physical Examination General: In no apparent distress HEENT: Atraumatic, Normocephalic Neck: Supple, JVD not distended Respiratory: Clear to auscultation bilaterally, Other (symmetric chest expansion) Cardiovascular: No rubs, No murmurs Gastrointestinal: Soft and benign, No guarding Musculoskeletal: No clubbing Integumentary: No warmth Neurological: Normal speech, Normal tone Lymphatics: No axilla or inguinal lymphadenopathy Urinary: Other (no bladder distention) External genitalia: Deferred Rectal: Deferred Laboratory Data (last 24 hrs) 04/22/22 07:00: Sodium 140, Potassium 3.0 L, BUN 4 L, Creatinine 0.66, Glucose 105, Magnesium 2.2 04/22/22 07:00: WBC 10.30, Hgb 13.0, Hct 38.2, Plt Count 159 04/21/22 14:10: Sodium 144, Potassium 2.9 L*, BUN 4 L, Creatinine 0.65, Glucose 91 Conclusions/Impression: # Rhabdomyolysis Renal fxn normal Cont IVF same rate Keep urine output > 75 cc/hr Monitor CPK levels [place] po fluid intake # Urinary retention Resolved, monitor # Hypokalemia KCl repletion prn # Suicide attempt via drug overdose Hx of depression/anxiety Utox positive for amphetamines, benzodiazepines, & THC Per other services # AMS 2/2 drug overdose Improved, monitor
[2022-04-22] MEDS: NA CHLORIDE 0.9% 1,000 ML IV SCH ×2 (21:00)
[2022-04-22] MEDS: KCL 20 MEQ/100 mL IVPB 20 MEQ/100 ML BAG IV SCH ×2 (21:00→23:30)
[2022-04-22] MEDS ORDERED: KCL 20 MEQ/100 mL IVPB 100 ML IV ONE ×2 (21:12→21:13)
[2022-04-22 22:15] LABS: Bicarbonate 24 mmol/L (21-32); Glomerular Filtration Rate 112 ml/min (=/>90); Glucose Level 107 mg/dL (74-106); Magnesium 2.1 mg/dL (1.6-2.4); Potassium 3.7 mmol/L (3.5-5.1); Sodium Level 142 mmol/L (136-145)
[2022-04-22 22:16] LABS: BUN Blood Urea Nitrogen < 3 mg/dL (7-18)
[2022-04-22] MEDS ORDERED: LORazepam 2 MG/ML VIAL IV ONE (22:31)
[2022-04-22] MEDS ORDERED: LORazepam 2 MG/ML VIAL ONE (22:34)
[2022-04-23] MEDS: NA CHLORIDE 0.9% 1,000 ML IV SCH ×5 (02:00→19:21)
[2022-04-23 02:41] LABS: Absolute Lymphocytes (CBC) 1.6 K/uL (0.7-4.9); Hematocrit 34.7 % (36.0-45.0); Lymphocytes % 19.7 % (15.3-44.8); MCV 89.1 fL (80-100); MPV 8.6 fL (7.6-11.3)
[2022-04-23 02:57] LABS: ALT/SGPT 69 U/L (13-56); AST/SGOT 168 U/L (15-37); Albumin 3.2 g/dL (3.4-5.0); Alkaline Phosphatase 48 U/L (45-117); Bicarbonate 25 mmol/L (21-32); Bilirubin Total 0.4 mg/dL (0.2-1.0); Glomerular Filtration Rate 116 ml/min (=/>90); Glucose Level 129 mg/dL (74-106); Magnesium 2.2 mg/dL (1.6-2.4); Phosphorus 1.2 mg/dL (2.5-4.9); Potassium 3.6 mmol/L (3.5-5.1); Sodium Level 142 mmol/L (136-145)
[2022-04-23 02:58] LABS: BUN Blood Urea Nitrogen < 3 mg/dL (7-18)
[2022-04-23 04:58] LABS: Creatine Phosphokinase 9260 U/L (26-192)
[2022-04-23] MEDS ORDERED: NA CHLORIDE 0.9% 1,000 ML ONE (05:02)
[2022-04-23 06:28] VITALS: BMI 23.0
[2022-04-23] MEDS ORDERED: POTASSIUM PHOS 20 MEQ in NA CHLORIDE 0.9% 250 ML IV ONE (06:58)
[2022-04-23] MEDS ORDERED: INFLUENZA VACCINE (for 6+ mo) 0.5 ML DOSE IMVAC ONE (12:00)
[2022-04-23 12:36] LABS: Absolute Lymphocytes (CBC) 1.7 K/uL (0.7-4.9); Hematocrit 36.5 % (36.0-45.0); MCV 88.7 fL (80-100); MPV 8.3 fL (7.6-11.3); RBC Red Blood Cell Count 4.12 M/uL (3.86-4.86)
--- NOTE | 2022-04-23 12:42 | EKG ---
Test Date: 2022-04-21 Test Time: 08:52:19 Reeler Operator: DARLENE MEASUREMENT RESULTS: Intervals: Rate: 120 [place]: 188 QRSD: 102 QT: 284 QTc: 401 [place]: P: 80 [place]: 188 QRS: 89 T: -44 INTERPRETIVE STATEMENTS: Sinus tachycardia Possible Left atrial enlargement ST & T wave abnormality, consider inferolateral ischemia Abnormal ECG Compared to ECG 04/21/2022 01:11:00 Possible ischemia now present ST (T wave) deviation still present Electronically Signed On 04-23-22 12:37:17 FAMILY NURSE PRACTITIONER by Travon López
--- NOTE | 2022-04-23 12:43 | EKG ---
Test Date: 2022-04-21 Test Time: 01:11:00 Metal Polisher: LEONCIO MEASUREMENT RESULTS: Intervals: Rate: 109 MD: 146 QRSD: 90 QT: 376 QTc: 506 [place]: P: 59 MD: 146 QRS: 74 T: 21 INTERPRETIVE STATEMENTS: Sinus tachycardia Nonspecific ST abnormality Abnormal ECG Compared to ECG 04/20/2022 17:43:59 ST (T wave) deviation now present Right-axis deviation no longer present Myocardial infarct finding no longer present Electronically Signed On 04-23-22 12:37:45 PAYROLL SPECIALIST by Travon López
--- NOTE | 2022-04-23 12:45 | EKG ---
Test Date: 2022-04-20 Test Time: 17:43:59 Computer Mechanic: SERGE MEASUREMENT RESULTS: Intervals: Rate: 107 [place]: 158 QRSD: 76 QT: 378 QTc: 504 [place]: P: 76 [place]: 158 QRS: 93 T: 33 INTERPRETIVE STATEMENTS: Sinus tachycardia Possible Left atrial enlargement Rightward axis Septal infarct, age undetermined Abnormal ECG No previous ECG available for comparison Electronically Signed On 04-23-22 12:38:18 LANGUAGE PATH by Travon López
[2022-04-23 13:16] LABS: Bicarbonate 24 mmol/L (21-32); Glomerular Filtration Rate 118 ml/min (=/>90); Glucose Level 103 mg/dL (74-106); Potassium 3.7 mmol/L (3.5-5.1); Sodium Level 142 mmol/L (136-145)
[2022-04-23 13:19] LABS: BUN Blood Urea Nitrogen < 3 mg/dL (7-18); Creatine Phosphokinase 8445 U/L (26-192)
[2022-04-23] MEDS: NICOTINE 14 MG/PAT TD SCH (19:22)
--- NOTE | 2022-04-23 21:32 | P.PN ---
Date of Service: 04/23/22 Subjective: feels slightly better, anxious because she hasn't spoken to her family tolerating IV fluids, urinating quite often ROS: A complete review of systems was performed and is negative except as mentioned above Physical Exam: Gen: NAD, AOx3 HEENT: normal conjunctiva, sclera anicteric CV: regular rate & rhythm, no edema Pulm: non-labored respirations, clear bilaterally Abd: soft, non-tender, non-distended Skin: scattered bilateral ecchymosis in upper/lower extremiteis Neuro: normal speech, normal affect, moves all extremities vitals reviewed Problem List Acute toxic encephalopathy secondary to medication overdose for presumed Suicide attempt, resolved QTc prolongation secondary to medication toxicity (Wellbutrin), resolved rhabdomyolysis leukocytosis hypokalemia Brought in by police, 302 on chart - expires tomorro artt ~ 4pm initially assumed patient took buspar - bottle found by her. But patient denies this, and reported taking unknown amount of wellbutrin - saying may not have found bottle if in her car or purse. Patient's presentation makes more sense / would be explained if truly was wellbutrin as she had tachycardia and agitation, then oversedated. Her course in the ED seemed to swing back and forth and agitation managed with lower dose benzos / antipsychotics. Mentation is much better, seems to be at baseline. understands what is going on. oriented x3 patient to be evauluated for inpatient psych today denies current SI rhabdo, elevated CPK from self-inflicted bruisng and from being combative with police and requiring restraints had not eaten, and [place] patient dehydrated, received some IV fluids, and had some urinary retention further bruising much more evident today throughout body no witnessed seizure / do not suspect seizure; but risk with wellbutrin overdose started NS @200ml/hr, decrease to 150 strict I/Os nephro consulted titrate fluids to goal UOP of ~100ml/hr urinary retention resolved, has been up to bathroom voiding without issue pt does not want humphries, and denies any current issues. Discussed can try without it, if unable to get accurate UOP or patient having difficulty, will place humphries fall risk; suicide precautions Code: full Dispo: involuntary [facility] expires 04/24 per ED staff, uday came by and agrees patient to unsafe to dc home inpatient psych transfer initiated in ED On waitlist for [place]; waiting for CPK < 5k
[2022-04-24 03:46] LABS: Urine Bacteria <20 /HPF (<20); Urine Bilirubin NEGATIVE (Negative); Urine Blood Negative (Negative); Urine Clarity Clear (Clear); Urine Color Light-Yellow (Yellow); Urine Glucose NEGATIVE (Negative); Urine Mucus Slight /HPF (None Seen); Urine Protein NEGATIVE (Negative); Urine RBC None Seen /HPF (None Seen); Urine Urobilinogen Normal (Normal); Urine pH 6.5 (5.0-7.0)
[2022-04-24] MEDS: NA CHLORIDE 0.9% 1,000 ML IV SCH ×3 (04:00→16:19)
--- NOTE | 2022-04-24 04:05 | PN ---
Date of Progress Note: 04/23/2022 Chief Complaint: Rhabdomyolysis, hypokalemia, hypophosphatemia, elevated CPK level. Subjective: The patient was found to have rhabdomyolysis, CPK elevated. The patient was started on IV fluids. The patient is a 36-year-old woman with history of depression and anxiety, who presented with altered mental status after suicidal attempt via drug overdose. She was found to have mild leuk ocytosis, mild hypokalemia, mild QT prolongation, and rhabdomyolysis. CK level was elevated, althoug h renal function remains at baseline. U-tox was positive for amphetamines and benzodiazepine and THC . The patient is awake and follows commands. She denies complaints. Denies dysuria, hematuria, uri ne discoloration. Denies skin rash and joint swelling. Physical Examination: Lungs: Clear to auscultation bilaterally. Heart: S1, S2. Abdomen: Soft. Extremities: No edema. Laboratory Data: Blood work; hemoglobin is 13, hematocrit 38.2. BUN is 4, creatinine 0.66, sodium 1 40, potassium 3.0, glucose 105, magnesium 2.2. Impression And Plan: 1.Rhabdomyolysis. CK level is severely elevated. Continue IV fluids and continue replacement with potassium phosphate as needed. Monitor phosphorus level. 2.Urinary retention, resolved. Monitor. 3.Hypokalemia. Potassium chloride is used to treat hypokalemia. 4.Suicide attempt, history of depression. U-tox positive for amphetamines and benzodiazepines and T HC per our services. 5.Altered mental status is improving. The patient developed altered mental status due to medication overdose. Further recommendation from primary team. JOSH/MODL Voice ID: [id number] Report ID: [id number]
[2022-04-24 04:35] LABS: Phosphorus 4.3 mg/dL (2.5-4.9); Potassium 3.1 mmol/L (3.5-5.1)
[2022-04-24] MEDS ORDERED: POTASSIUM CL SA 10 MEQ TAB PO ONE (06:00)
--- NOTE | 2022-04-24 08:44 | RAD REPORT ---
EXAM DESCRIPTION: US - Renal Ultrasound-Complete - 04/24/2022 12:33 am CLINICAL HISTORY: rhabdo Flank pain COMPARISON: No comparisons FINDINGS: Both kidneys are normal in size, shape and echotexture. The right kidney measures 12.0 x 3.8 x 3.5 cm. No hydronephrosis, focal mass or perinephric fluid. The left kidney measures 13.2 x 4.9 x 3.9 cm. No hydronephrosis, focal mass or perinephric fluid. The urinary bladder is incompletely distended without gross abnormality seen. IMPRESSION: Unremarkable renal sonogram.
[2022-04-24] MEDS: NICOTINE 14 MG/PAT TD SCH (09:34)
[2022-04-24 11:46] VITALS: O2SAT 98
--- NOTE | 2022-04-24 14:56 | P.PN ---
Subjective Date of Service: 04/24/22 Chief Complaint: elevated CPK, rhabdomyolysis 36F w/ PMHx of depression/anxiety who p/w AMS after a suicide attempt via drug overdose, found to have mild leukocytosis, mild hypokalemia, mild QT prolongation, and rhabdomyolysis. Utox positive for amphetamines, benzodiazep shawna, & THC. Today no overnight event s pt is awake and alert CPK trending down Physical exam General: Awake, NAD HEENT: Atraumatic, Normocephalic Neck: Supple, no elevated JVD Respiratory:CTAB Cardiovascular: No rubs, No murmurs Gastrointestinal: Soft and benign, Non-distended Musculoskeletal: No clubbing Integumentary: No warmth A/P # Rhabdomyolysis CPK trending down Renal fxn normal Monitor CPK levels [place] po fluid intake # Urinary retention Resolved US ; no retention # Hypokalemia KCl repletion prn # Suicide attempt via drug overdose Hx of depression/anxiety Utox positive for amphetamines, benzodiazepines, & THC Per other services # AMS 2/2 drug overdose resolved Physical Examination - Vital Signs Temperature: 97.8 F Blood Pressure: 130/76 Pulse: 88 Respirations: 18 Pulse Ox (%): 98
--- NOTE | 2022-04-24 19:30 | P.PN ---
Subjective Date of Service: 04/24/22 Chief Complaint: elevated CPK, rhabdomyolysis Patient denies any complaint at the moment. Physical Examination - Vital Signs Temperature: 97.8 F Blood Pressure: 130/76 Pulse: 88 Respirations: 18 Pulse Ox (%): 98 - Physical Exam General: Alert, In no apparent distress, Oriented x3 HEENT: Mucous membr. moist/pink Neck: JVD not distended Respiratory: Clear to auscultation bilaterally, Normal air movement Cardiovascular: No edema, Regular rate/rhythm, Normal S1 S2 Gastrointestinal: Soft and benign, Non-distended, No tenderness Musculoskeletal: No swelling Integumentary: No cyanosis Neurological: Normal strength at 5/5 x4 extr Assessment And Plan - Plan Acute toxic encephalopathy secondary to medication overdose for presumed Suicide attempt, resolved QTc prolongation secondary to medication toxicity (Wellbutrin), resolved rhabdomyolysis leukocytosis hypokalemia Plan: Patient with suicide attempt. Upon further questioning, patient alleged she took a handful of Wellbutrin which was triggered by recent multiple stressors including an argument with her mother and subsequently being kicked out of the house. She denied suicide attempt despite writing multiple suicide notes. Behavioral health([facility]) evaluated patient initially and deemed appropriate for inpatient psychiatry. She was evaluated by [facility] again and they insisted the need for inpatient psychiatric placement. Toxicology screen positive for multiple substances-THC and amphetamine. Patient is deemed mentally unstable. She has high risk factors for subsequent suicide attempts. Risk factors include history of major depressive disorder noncompliant with medications, polysubstance abuse, prior inpatient psychiatry hospitalization. There was an emergency custodial order on her which has . Case discussed with psychiatry Dr. Adam who concurs patient is high risk for self-harm and unsafe to discharge home. Dr. Adam recommended immediate 24-hour watch, imminent follow-up with a psychiatrist and mood stabilizers and family support in which case inpatient psychiatry is recommended. Rhabdomyolysis have improved and patient deemed medically stable. She has been accepted to [facility] inpatient psychiatry. She is at the moment involuntary. Mental health deputy was contacted via phone conference with administration (MARICARMEN) and at the moment recommend mental health warrant which has been filled. The deputy department is planning to see the patient tonight for transfer to [facility] psychiatry.
[2022-04-24 23:19] VITALS: BP 139/85; TEMP 97.9
--- NOTE | 2022-04-25 18:32 | P.DS ---
Admission Date: 04/22/22 Discharge Date: 04/24/22 Disposition: TRANSFR TO OTHER-PSY/CD/REHAB Discharge Condition: GOOD Reason for Admission: elevated CPK, rhabdomyolysis Brief History of Present Illness: 36yo F, PMH: depression/anxiety. Brought to ED after found with altered mental status, confused, and reportedly became combative with police on 04/20/22. She was found with a suicide note, divorce papers, and bottle of 10mg buspirone with ~20 pills misisng. She was given Versed and became oversedated, narcan was administered without much improvement. Initial labs notable for mild leukocytosis, mild hypokalemia, urine tox positive for amphetamines, benzodiazepines, THC. Initial EKG with mild QT prolongation, Poison control was called, and repeat EKGs had improvement of her QTc. She received IV fluids, continued with agitation, and remained in 4 point restraints. The following day, her CPK was noted to increase to ~1100, with improved renal function. She was given further IV fluids with minimal CPK increase. She reportedly had some urinary retention and straight cath'd and drained 1 L of urine. Patient was kept in the ED awaiting transfer to inpatient psych. Her CPK increased to 11,000 while in the ED. At this point hospitalist service was contacted to admit her to the hospital. Per report, she gave more history when she became more awake and was able to recall feeling upset and overwhelmed. She reported taking an unknown amount of wellbutrin. Her urine toxicology screen was positive for amphetamine, THC and opioid. Hospital Course: Diagnosis Acute toxic encephalopathy secondary to medication overdose for presumed Suicide attempt, resolved QTc prolongation secondary to medication toxicity (Wellbutrin), resolved rhabdomyolysis leukocytosis hypokalemia Patient admitted to the medical floor and aggressively hydrated with IV fluids. CPK level monitored showed improvement.CPK level peaked at 10,000 and then trended down to less than 5000. No witnessed seizure reported. Nephrology consulted to assist with management of rhabdomyolysis. Urinary retention resolved. Patient was placed on suicide precautions. She clinically improved with treatment and deemed stable for transfer to inpatient psych. Upon further questioning, patient alleged she took a handful of Wellbutrin which was triggered by recent multiple stressors including an argument with her mother and subsequently being kicked out of the house. She denied suicide attempt despite writing multiple suicide notes and refused to go to inpatient psych. Behavioral health([facility]) evaluated patient initially and deemed appropriate for inpatient psychiatry. She was evaluated by [facility] again and they insisted the need for inpatient psychiatric placement. Toxicology screen positive for multiple substances-THC and amphetamine. Patient deemed mentally unstable. She has high risk factors for subsequent suicide attempts. Risk factors include history of major depressive disorder noncompliant with medications, polysubstance abuse, prior inpatient psychiatry hospitalization. There was an emergency senior living order on her which . Case discussed with psychiatry Dr. Adam who concurs patient is high risk for self-harm and unsafe to discharge home. Dr. Adam recommended immediate 24-hour watch, imminent follow-up with a psychiatrist and mood stabilizers and family support in which case inpatient psychiatry is recommended. Rhabdomyolysis improved and patient deemed medically stable. She has been accepted to [facility] inpatient psychiatry. She is at the moment involuntary. Mental health deputy was contacted via phone conference with administration (MARICARMEN) who recommended mental health warrant. Patient was subsequently transferred to [facility] inpatient psychiatry. Vital Signs/Physical Exam: Temp Pulse Resp BP Pulse Ox 97.9 F 89 16 139/85 97 04/24/22 20:00 04/24/22 20:00 04/24/22 20:00 04/24/22 20:00 04/24/22 20:00 Laboratory Data at Discharge: WBC 7.10 K/uL (4.3-10.9) 04/23/22 12:20 Hgb 12.3 g/dL (12.0-15.0) 04/23/22 12:20 Hct 36.5 % (36.0-45.0) 04/23/22 12:20 Plt Count 162 K/uL (152-406) 04/23/22 12:20 Sodium 141 mmol/L (136-145) 04/24/22 02:40 Potassium 3.7 mmol/L (3.5-5.1) D 04/24/22 11:36 BUN 3 mg/dL (7-18) L 04/24/22 02:40 Creatinine 0.62 mg/dL (0.55-1.02) 04/24/22 02:40 Glucose 92 mg/dL (74-106) 04/24/22 02:40 Phosphorus 4.3 mg/dL (2.5-4.9) 04/24/22 02:40 Magnesium 2.2 mg/dL (1.6-2.4) 04/23/22 02:15 Total Bilirubin 0.4 mg/dL (0.2-1.0) 04/23/22 02:15 AST 168 U/L (15-37) H 04/23/22 02:15 ALT 69 U/L (13-56) H 04/23/22 02:15 Alkaline Phosphatase 48 U/L (45-117) 04/23/22 02:15
== END 2022-04-24 21:45 | DRG 917 ==
LOC: ER 17:20 → ERHOLD 04-22 10:41 → 2ND 04-23 15:24
PROVIDERS: ADMIT Hospitalist; ATTEND Internal Medicine
DX: T43.291A Poisoning by other antidepressants, accidental (unintentional), initial encounter (principal); G92.8 Other toxic encephalopathy; M62.82 Rhabdomyolysis; F05 Delirium due to known physiological condition; E87.6 Hypokalemia; E86.0 Dehydration; F19.10 Other psychoactive substance abuse, uncomplicated; D72.829 Elevated white blood cell count, unspecified; T14.91XA Suicide attempt, initial encounter; F17.200 Nicotine dependence, unspecified, uncomplicated; R33.9 Retention of urine, unspecified; R94.31 Abnormal electrocardiogram [ECG] [EKG]; Z88.8 Allergy status to other drugs, medicaments and biological substances; Z78.1 Physical restraint status; Z63.5 Disruption of family by separation and divorce; Z90.49 Acquired absence of other specified parts of digestive tract; Z91.09 Other allergy status, other than to drugs and biological substances; Z91.048 Other nonmedicinal substance allergy status; Z91.040 Latex allergy status; Z20.822 Contact with and (suspected) exposure to COVID-19
CPT/HCPCS: 36415; 51702; 70450; 71045; 76770; 80048; 80053; 80307; 81001; 81003; 81025; 82140; 82550; 82805; 82947; 83735; 84100; 84132; 84484; 85025; 87811; 93005; 94760; 96372; 99285; G0480; J3480; J7030; J7050